=== PATIENT | female | born 1960 | race Caucasian/White ===

== ENCOUNTER → 2017-08-25 | Outpatient (CLI) | payer OTHER ==
[~2017-08-25] MED LIST: NORCO 5-325 TA1 EACH PO; TRAZODONE 150150 M1 PO; ZPAK PO
== END ==
LOC: M.CT 11:00
DX: K57.30 Diverticulosis of large intestine without perforation or abscess without bleeding (principal); N20.0 Calculus of kidney; M51.36 Other intervertebral disc degeneration, lumbar region; R91.1 Solitary pulmonary nodule; Z90.49 Acquired absence of other specified parts of digestive tract; Z90.710 Acquired absence of both cervix and uterus

== ENCOUNTER → 2018-03-03 | Outpatient (CLI) | payer OTHER | LOC: M.RAD 08:36 | DX: Z12.31 Encounter for screening mammogram for malignant neoplasm of breast (principal) ==

== ENCOUNTER 2019-04-18 03:55 | Inpatient (IN) | payer OTHER ==
[~2019-04-18] VITALS: Ht 165.1 cm; Wt 87.1 kg
--- NOTE | ~2019-04-18 | OP ---
[address] [address] OPERATIVE REPORT Name: ANAND BARRERA Room: [address]#: [id number] Admission: 04/18/19 Attend Phys: Alfredo Raman MD Discharge: 04/18/19 Date of : 62 Report #: [id number] THIS REPORT FOR: //name// CC: Alfredo DURAN DATE OF SERVICE: 04/18/2019 PREOPERATIVE DIAGNOSIS: Right nephrolithiasis. POSTOPERATIVE DIAGNOSIS: Right nephrolithiasis. PROCEDURES PERFORMED: 1. Cystoscopy. 2. Right retrograde pyelogram. 3. Right ureteroscopy with laser lithotripsy and stone basket extraction. 4. Right ureteral stent placement. STAFF: Alejo James MD COMPLICATIONS: None. DRAINS: One 6 x 26 right ureteral stent. SPECIMENS: Right ureteral stone. INDICATIONS: The patient is a 58-year-old female with a history of nephrolithiasis who presented to the ER with right-sided flank pain, was found to have approximately 11 mm mid right ureteral stone as well as nonobstructing stone in the upper pole. After thorough discussion, decision was made to proceed with ureteroscopy. DESCRIPTION OF PROCEDURE: On 04/18/2019, after consent was obtained, the patient was taken to the operating room and placed in supine position. She was then placed under general anesthesia. She received preoperative IV Cipro for antibiotic coverage. She was then placed in dorsal lithotomy and her genitals were prepped and draped in normal sterile fashion. Next, we began the procedure by inserting the 22.5-Croatian rigid cystoscope transurethrally without any difficulty. Once in the bladder, identified the right ureteral orifice. This was cannulated with a 5-Croatian open-ended stent. Retrograde pyelogram was performed, which demonstrated a large stone in the mid to proximal ureter and some mild hydronephrosis. At this point, a sensor wire was passed up the upper pole and I withdrew the cystoscope and inserted the semirigid ureteroscope, I was able to pass this up alongside the sensor wire into the distal and mid ureter, eventually identified the stone and a 272 micron laser fiber was utilized to break this up into multiple smaller fragments. A 1.[address] [place] [address] OPERATIVE REPORT Name: ANAND BARRERA Room: [address]#: [id number] Admission: 04/18/19 Attend Phys: Alfredo Raman MD Discharge: 04/18/19 Date of : 62 Report #: [id number] was utilized to evacuate the ureter of all measurable stone burden. Following this, I selected a 12-14-36 cm access sheath to pass this up over the sensor wire to the level of the renal pelvis under fluoroscopic guidance. Flexible ureteroscopy was then utilized, identified a large stone in the upper pole. Again, the laser fiber was utilized to break this up into approximately 5 smaller fragments. The 1.9 nitinol basket was utilized to then evacuate the upper pole of any measurable stone burden. I then placed a sensor wire through the ureteroscope and I removed the access sheath and ureteroscope visualizing the entire ureter, which was free of any injury and/or stone burden. I then selected a 6 x 26 stent, which was passed up the upper pole under fluoroscopic guidance, had a good coil in the urinary bladder under direct visual guidance. The patient's bladder was emptied. She was awakened from anesthesia. By: 1640 [id number] James MD /lucina
[2019-04-18 04:03] VITALS: BP 113/80
[2019-04-18 04:31] LABS: ABSOLUTE BASOPHILS 0.1 thou/uL (0.0-0.2); ABSOLUTE EOSINOPHILS 0.4 thou/uL (0.0-0.7); ABSOLUTE LYMPHOCYTES 2.8 thou/uL (0.8-5.3); ABSOLUTE MONOCYTES 0.6 thou/uL (0.0-1.2); ABSOLUTE NEUTROPHILS 4.3 thou/uL (1.6-8.1); BASOPHILS 0.7 %; EOSINOPHILS 4.5 %; HEMATOCRIT 42.6 % (37.0-47.0); HEMOGLOBIN 14.6 gm/dL (12.0-15.0); LYMPHOCYTES 34.8 %; MCH 31.7 pg (26.0-34.0); MCHC 34.3 g/dL (28.0-37.0); MCV 92.3 fL (80.0-100.0); MONOCYTES 7.4 %; MPV 9.7 fl. (7.2-11.1); NUCLEATED RBCS 0 /100WBC; PLATELET COUNT* 222 thou/uL (150-400); POLYS 52.6 %; RBC 4.62 mil/uL (4.20-5.00); RDW-CV 13.9 % (10.5-14.5); WBC 8.1 thou/uL (4.0-11.0)
[2019-04-18 04:33] LABS: URINE BILIRUBIN NEGATIVE (Negative); URINE BLOOD 2+ (Negative); URINE CLARITY CLEAR; URINE COLOR YELLOW; URINE GLUCOSE-RANDOM NEGATIVE (Negative); URINE KETONES NEGATIVE (Negative); URINE LEUKOCYTES-REFLEX NEGATIVE (Negative); URINE NITRITE-REFLEX NEGATIVE (Negative); URINE PROTEIN NEGATIVE (Negative); URINE SPECIFIC GRAVITY >= 1.030 (1.005-1.030); URINE UROBILINOGEN 0.2 E.U./dl (0.2-1.0)
[2019-04-18 04:36] LABS: CALCIUM 8.5 mg/dL (8.5-10.1); CREATININE 1.2 mg/dL (0.6-1.3); POTASSIUM 3.4 mmol/L (3.5-5.1)
[2019-04-18 04:41] LABS: TOTAL BILIRUBIN 0.3 mg/dL (<0.1-1.0); TOTAL PROTEIN 6.9 g/dL (6.4-8.2)
[2019-04-18 05:30] LABS: CASTS None Seen /LPF (None Seen); SQUAMOUS >10 Many /LPF (0-3)
[2019-04-18 05:31] LABS: URINE RBC 3-10 Few /HPF (0-2); URINE WBC-REFLEX 6-15 Few /HPF (0-5)
[2019-04-18 05:32] LABS: CALCIUM OXALATE 0-3 Few /LPF (None Seen)
[2019-04-18 09:37] VITALS: BP 132/91
[2019-04-18 10:38] VITALS: BP 117/72
--- NOTE | 2019-04-18 11:37 | NUR ---
PT ADMITTED TO ROOM 309 AT APPROXIMATELY 1035 WITH AN ADMITTING DIAGNOSIS OF RIGHT KIDNEY STONE. PT AWAITING PROCEDURE AT 1430 AND THEN POSSIBLE DISCHARGE. VSS. PT DENIES CP, SOA, N/V/D. PT REPORTS RIGHT FLANK PAIN, RATING IT 9/10. PT ORIENTED TO ROOM AND CALL LIGHT, VERBALIZES UNDERSTANDING. HOURLY ROUNDING IN PLACE, CLWR.
[2019-04-18 15:14] VITALS: BP 117/72
[2019-04-18 17:57] VITALS: BP 142/85
[2019-04-18] MEDS ORDERED: PERCOCET PO (18:14)
[2019-04-18] MEDS ORDERED: FLORANEX TABLE1 EACH PO (18:15)
[2019-04-18] MEDS ORDERED: PHENAZOPYRIDIN200 M2 PO (18:16)
[2019-04-18] MEDS ORDERED: OXYBUTYNIN 5 MG5 M2 PO (18:17)
[2019-04-18] MEDS ORDERED: CIPRO500 MG PO (18:18)
[2019-04-18 18:19] VITALS: BP 142/85
== END 2019-04-18 18:58 | disposition home or self-care (01) | DRG 661 ==
LOC: M.ERS 03:55 → M.TBA-ER 06:09 → M.3W 10:51
PROVIDERS: Family Medicine; ADMIT Internal Medicine
PROC: 0TC68ZZ Extirpation of Matter from Right Ureter, Via Natural or Artificial Opening Endoscopic (ICD-10-PCS; principal; 2019-04-18)
PROC: 0T768DZ Dilation of Right Ureter with Intraluminal Device, Via Natural or Artificial Opening Endoscopic (ICD-10-PCS; principal; 2019-04-18)
PROC: BT1D1ZZ Fluoroscopy of Right Kidney, Ureter and Bladder using Low Osmolar Contrast (ICD-10-PCS; principal; 2019-04-18)
DX: N13.6 Pyonephrosis (principal); F17.210 Nicotine dependence, cigarettes, uncomplicated; R31.9 Hematuria, unspecified; N17.0 Acute kidney failure with tubular necrosis; Z90.710 Acquired absence of both cervix and uterus; Z99.81 Dependence on supplemental oxygen; Z90.49 Acquired absence of other specified parts of digestive tract; Z87.442 Personal history of urinary calculi; Z88.6 Allergy status to analgesic agent; Z88.8 Allergy status to other drugs, medicaments and biological substances

== ENCOUNTER 2020-02-15 14:28 | Emergency (ER) | payer OTHER ==
[~2020-02-15] VITALS: Ht 165.1 cm; Wt 87.1 kg
[~2020-02-15 14:28] MED LIST changes: +CIPRO500 MG PO; +FLORANEX TABLE1 EACH PO; +OXYBUTYNIN 5 MG5 M2 PO; +PERCOCET PO; +PHENAZOPYRIDIN200 M2 PO
[2020-02-15 15:02] LABS: ABSOLUTE BASOPHILS 0.1 thou/uL (0.0-0.2); ABSOLUTE EOSINOPHILS 0.1 thou/uL (0.0-0.7); ABSOLUTE LYMPHOCYTES 1.9 thou/uL (0.8-5.3); ABSOLUTE MONOCYTES 0.6 thou/uL (0.0-1.2); ABSOLUTE NEUTROPHILS 4.7 thou/uL (1.6-8.1); BASOPHILS 0.9 %; EOSINOPHILS 1.9 %; HEMATOCRIT 40.6 % (37.0-47.0); HEMOGLOBIN 14.3 gm/dL (12.0-15.0); LYMPHOCYTES 25.7 %; MCH 32.3 pg (26.0-34.0); MCHC 35.1 g/dL (28.0-37.0); MCV 91.9 fL (80.0-100.0); MONOCYTES 7.6 %; MPV 9.7 fl. (7.2-11.1); NUCLEATED RBCS 0 /100WBC; PLATELET COUNT* 210 thou/uL (150-400); POLYS 63.9 %; RBC 4.42 mil/uL (4.20-5.00); WBC 7.4 thou/uL (4.0-11.0)
[2020-02-15 15:14] LABS: ANION GAP 7 mmol/L (7-16); BUN 18 mg/dL (7-18); CALCIUM 8.2 mg/dL (8.5-10.1); CHLORIDE 107 mmol/L (98-107); CO2 28 mmol/L (21-32); CREATININE 1.3 mg/dL (0.6-1.3); GLUCOSE 118 mg/dL (70-99); POTASSIUM 3.6 mmol/L (3.5-5.1); SODIUM 142 mmol/L (136-145)
[2020-02-15 15:17] LABS: PROTIME 10.5 Seconds (9.20-11.50)
[2020-02-15 15:28] LABS: ALBUMIN 3.5 g/dL (3.4-5.0); ALKALINE PHOSPHATASE 116 U/L (46-116); CK-MB MASS < 0.5 ng/mL (<0.5-3.6); LIPASE 122 U/L (73-393); MAGNESIUM 2.1 mg/dL (1.8-2.4); NT-PRO BRAIN NAT PEPTIDE 97 pg/mL (<300); SGOT 18 U/L (15-37); SGPT 26 U/L (30-65); TOTAL BILIRUBIN 0.2 mg/dL (<0.1-1.0); TOTAL PROTEIN 6.6 g/dL (6.4-8.2)
[2020-02-15 15:56] VITALS: BP 118/85
--- NOTE | 2020-02-15 17:40 | EKG ---
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: VAL : 1960 Requested By: Bert Magallanes Order Number: [id number] MD: Thanh Childers Measurements Intervals [place] Rate: 78 P: -9 KS: 140 QRS: -39 QRSD: 89 T: 7 QT: 394 QTc: 449 Interpretive Statements Sinus rhythm Left axis deviation Low voltage, precordial leads Minimal ST depression, lateral leads Compared to ECG 04/30/2017 10:10:48 ST (T wave) deviation now present Electronically Signed On 02-15-2020 17:40:00 CDT by Thanh Childers [email or web address] <ELECTRONICALLY SIGNED> By: Thanh Childers MD, FACC 02/15/20 1740 1434 1434 Thanh Childers MD, FACC /EPI
== END 2020-02-15 15:57 | disposition home or self-care (01) ==
LOC: M.ERS 14:28
PROVIDERS: Family Medicine
DX: R07.89 Other chest pain (principal); F17.210 Nicotine dependence, cigarettes, uncomplicated; Z90.710 Acquired absence of both cervix and uterus; Z98.890 Other specified postprocedural states; Z87.442 Personal history of urinary calculi; Z90.49 Acquired absence of other specified parts of digestive tract; Z88.6 Allergy status to analgesic agent